=== PATIENT | male | born 1935 | race Caucasian/White ===

== ENCOUNTER 2020-12-30 10:17 | Emergency (ER) | payer MEDICARE, SELFPAY ==
--- NOTE | ~2020-12-30 | XR_ITS ---
EXAMINATION: XR ankle RT min 3V DATE: 12/30/2020 10:48 INDICATION: Right ankle injury and pain. TECHNIQUE: 4 views of right ankle were obtained. COMPARISON: None. FINDINGS: Bone alignment is normal. There is an oblique fracture of distal fibula with medial aspect of the fracture line 9 mm proximal to the level of the tibial plafond. The distal fracture fragment d emonstrates 2 mm posterolateral displacement. There is mild osteoarthritis of ankle joint and some of the interphalangeal joints. Ankle soft tissue swelling is noted. IMPRESSION: 1. Oblique fracture of distal fibula. 2. Mild polyarticular osteoarthritis. Reviewed, dictated and finalized at location A.
[2020-12-30 10:24] VITALS: BP 143/73; PULSE 60; RESP 20; TEMP 36.4; O2SAT 99
--- NOTE | 2020-12-30 10:26 | ED.LOWEXIN ---
HPI - Extremity Injury (Lower) General Chief Complaint: Extremity Injury, Lower Stated Complaint: right ankle injury Time Seen by Provider: 12/30/20 10:50 Source: patient and RN notes reviewed Mode of arrival: ambulatory Limitations: no limitations History of Present Illness HPI Narrative: 85-year-old male presents concern for left ankle pain, swelling. Reports 2 days ago he was about to fall off a ladder so he jumped off a ladder causing the ankle injury. Reports he has been using a cane for mobility, taking ibuprofen. He denies pain at rest, reports pain with weightbearing or range of motion. Denies decreased sensation, strength. MD complaint: ankle injury Related Data Home Medications Medication Instructions Recorded Confirmed aspirin [Adult Aspirin EC Low 81 mg PO DAILY 12/30/20 12/30/20 Strength] ferrous sulfate 325 mg PO DAILY 12/30/20 12/30/20 omeprazole magnesium [Prilosec OTC] 20 mg PO DAILY 12/30/20 12/30/20 terazosin [Hytrin] 5 mg PO TID 12/30/20 12/30/20 Allergies Allergy/AdvReac Type Severity Reaction Status Date / Time No Known Allergies Allergy Verified 12/30/20 10:33 Review of Systems Review of Systems: Narrative: CONSTITUTIONAL: Denies malaise, chills, sweats, or fever. SKIN: Denies abrasions, lacerations MUSCULOSKELETAL: Reports right ankle pain, swelling, bruising NEUROLOGIC: Denies numbness, weakness All systems reviewed & are unremarkable except as noted in HPI and below PMFSH Comments At time of signature, agree with nursing past medical, surgical, social and family history. There is no relevant family history pertinent to the presenting complaint Exam Narrative: Exam Narrative: GENERAL: Well-appearing, well-nourished, and in no acute distress. HEAD: Normocephalic, atraumatic. EYES: PERRLA, conjunctivae clear NECK: Supple. CHEST: Speaks in full sentences. No respiratory distress. HEART: Regular rate and rhythm. Normal and equal peripheral pulses. EXTREMITIES: Right ankle, foot, digits have normal strength and sensation, limited range of motion. Moderate edema, mild ecchymosis. 4/5 strength with ankle flexion and extension. Normal sensation with sensitivity to light touch and pain. Lateral ankle tenderness. No open wounds, no skin tenting, no devitalized tissue or atrophy, no trophic changes, no obvious deformity, alignment normal, nearby joints and structures intact. Distal pulses palpable and equal bilaterally, skin warm, dry, pink. Capillary refill 3 seconds. SKIN: Warm, dry, no rash. NEURO: Alert and oriented x3. PSYCH: Normal mood and affect Course Course Emergency Course: Patient is aware of diagnosis, understands and agrees to treatment plan. Anticipatory guidance given. Patient agrees to follow-up as directed and is aware of reasons to seek care at the emergency department. Portions of this record may have been created with voice recognition software Vital Signs Vital signs: Reviewed. Procedures Orthopedic Splinting/Casting Injury #1: Splinting/Casting Date: 12/30/20 Splinting/Casting Time: 11:05 Side: right Lower Extremity Injury Location: ankle Splint: customized in ED OCL: posterior Pre-Procedure Neuro Vascular Exam: normal Post-Procedure Neuro Vascular Exam: normal Additional Comments: Applied by tech MDM - Extremity Injury (Lower) MDM Narrative Medical decision making narrative: Patients injury and pain is consistent with musculoskeletal etiology. No signs of neurological or vascular compromise on exam. Compartments and tissues are soft without signs of compartment syndrome. Pain is felt appropriate for further evaluation on an outpatient basis. Imaging Data My impression: Images reviewed, interpreted by radiologist, agree, see report. Radiologist's impression: EXAMINATION: XR ankle RT min 3V DATE: 12/30/2020 10:48 INDICATION: Right ankle injury and pain. TECHNIQUE: 4 views of right ankle were obtained.
== END 2020-12-30 11:20 | disposition home or self-care (01) ==
PROVIDERS: Emergency Provider Nurse Practitioner; PCP Family Medicine
DX: S82.831A Other fracture of upper and lower end of right fibula, initial encounter for closed fracture (principal); W11.XXXA Fall on and from ladder, initial encounter; H21.9 Unspecified disorder of iris and ciliary body; N40.0 Benign prostatic hyperplasia without lower urinary tract symptoms
CPT/HCPCS: 29515; 73610; 99214; G0463